=== PATIENT | male | born 1955 | race Caucasian/White ===

== ENCOUNTER 2016-08-07 20:18 | Emergency (ER) | payer BC ==
[2016-08-07 21:27] LABS: HEMOGLOBIN 12.8 gm/dl (14.0-17.5); RED BLOOD COUNT 4.92 M/UL (4.20-5.50); WHITE BLOOD COUNT 8.4 K/UL (4.5-11.0)
[2016-08-07 21:51] LABS: BUN/CREATININE RATIO 10 (0-10)
== END 2016-08-07 23:57 | disposition home or self-care (01) ==
LOC: ER1 20:18
PROVIDERS: Emergency Medicine
DX: K59.00 Constipation, unspecified (principal); N39.0 Urinary tract infection, site not specified; D64.9 Anemia, unspecified; R73.9 Hyperglycemia, unspecified; K57.90 Diverticulosis of intestine, part unspecified, without perforation or abscess without bleeding
CPT/HCPCS: 36415; 71010; 71275; 80053; 81001; 82150; 82550; 82553; 83605; 83690; 83874; 84484; 85025; 85610; 85730; 96374; 96375; 99284; J2270; J2405; J7050; Q9963

== ENCOUNTER → 2020-09-01 | Outpatient (CLI) | payer MEDICARE | LOC: KOH-I 13:45 | DX: M79.671 Pain in right foot (principal); M79.672 Pain in left foot; R93.6 Abnormal findings on diagnostic imaging of limbs | CPT/HCPCS: 73630 ==